=== PATIENT | male | born 1940 | race Caucasian/White ===

== ENCOUNTER 2024-01-11 17:22 | Emergency (ER) | payer OTHER, SELFPAY ==
[2024-01-11 17:27] VITALS: BP 171/91
[2024-01-11 19:50] VITALS: BP 159/93
--- NOTE | 2024-01-11 21:18 | ED.MUSCINJ ---
HPI-Injury
General
Chief Complaint: Musculo-Skeletal Complaint
Source: patient
Time Seen by Provider: 01/11/24 19:41
History of Present Illness-Injury
Initial Injury comments:
83-year-old male presents complaining of left lateral thigh pain, hip pain which radiates down to his calf. No specific injury that he can recall. Patient is able to weight-bear. No fever or chills. Patient was seen by his primary care doctor
and referred to the emergency room
Phy Exam
Physical Exam
Physical Exam:
General: Awake, Alert, Oriented X3. No acute distress.
Vitals: unremarkable
Head: Atraumatic
Eyes: Pupils equal, EOMI
Throat: Airway intact, no exudates
Neck: Trachea midline
Lungs: Clear and equal b/l
Heart: Regular rate, no murmurs
Abd: Soft, Nontender, No pulsatile mass
Neuro: Nonfocal
Skin: Warm, dry, no rash
Extremities: pulses equal b/l, no edema. Negative straight leg raise. Some tenderness palpation over the lateral thigh. No rash noted.
Injury Course
Orders/Labs/Results
Orders:
Orders
01/11/24 17:30
Legs, left US [US Periph Venous LOWER Ext LT] Urgent
Comment:
Reason For Exam: pain
MDM/Problems Addressed
Differential Diagnosis Includes:
DVT, zoster, muscle strain, bursitis, radiculopathy
MDM/Problems Addressed:
Ultrasound shows no DVT. On physical exam he has full range of motion and I do not have any suspicion for bony abnormality at least not an acute fracture. Patient will be treated with Devlin 2 inhibitor for bursitis. Follow-up with primary care
provider for physical therapy referral. Lumbar radiculopathy also considered a possibility however patient has no back pain whatsoever and the pain does not radiate all way down to his foot. He seems more comfortable than what I would expect for
radiculopathy.
*Radiology
Radiology exam reviewed: radiology read reviewed
*Pulse Oximetry
Patient hypoxic: no
*Critical Care Note
Total Time (30-74mins, 75-104mins- exclusive of procedures): Not Applicable
ED Attending Note
-
Portions of this chart may have been created with voice recognition software.� Occasional wrong word or��sound alike� substitutions may have occurred due to the inherent limitations of voice recognition software.
Discharge Plan
Departure
Patient Disposition: Home (Routine Discharge)
Date of Disposition: 01/11/24
Time of Disposition: 21:18
Patient with high blood pressure during this ER visit?: No
Condition: Good
Discharge Problem:
Bursitis of left hip
Instructions: Hip Bursitis (DC), Hip Bursitis Exercises
Prescriptions:
New
celecoxib [Celebrex] 200 mg capsule
200 mg PO BID PRN (Reason: Pain) Qty: 30 0RF
Activity Restrictions/Additional Instructions:
Discuss having some physical therapy for your left hip/leg pain with your primary care provider.
Interventions
Interventions:
*Risk Screen - Suicide Last Done: 01/11/24 17:27
*General Assessment Last Done: 01/11/24 17:27
*Neglect/Abuse Screening Last Done: 01/11/24 17:27
ED- Fall Risk Assessment Last Done: 01/11/24 19:46
*ED COVID-19 Vaccine History Last Done: 01/11/24 17:27
*Nursing Disposition Last Done: 01/11/24 21:39
ED-Musculoskeletal Assessment Last Done: 01/11/24 19:46
Discharge Date and Time
Discharge Date/Time: 01/11/24 21:40
Print Language: GREEK
== END 2024-01-11 21:40 | disposition home or self-care (01) ==
LOC: EMR 17:22
PROVIDERS: EMERGENCY PHYSICIAN Emergency Medicine; FAMILY PHYSICIAN Internal Medicine
DX: M70.72 Other bursitis of hip, left hip (principal)
CPT/HCPCS: 99284; 93971